=== PATIENT | female | born 1960 ===

== ENCOUNTER 2017-12-26 06:52 | Observation (INO) | payer MEDICARE, SELFPAY ==
[2017-12-26 06:53] VITALS: BMI 22.8
[2017-12-26] MEDS ORDERED: Famotidine 20mg/50ml 20 MG/50 ML BAG IVPB STA (07:33)
[2017-12-26] MEDS ORDERED: Sodium Chloride 0.9% 1,000 ML IV STA (07:33)
--- NOTE | 2017-12-26 07:41 | ED PDOC ---
Arrival/HPI - General Chief Complaint: Abdominal Pain Time Seen by Provider: 12/26/17 07:30 Historian: Patient - History of Present Illness Narrative History of Present Illness (Text): 12/26/17 07:30 57 year old female, whose PMH includes hypertension, fibromyalgia, lupus, and small bowel obstruction, who presents to the emergency department complaining of abdominal cramping since 2 days. Patient associated this symptom with fatigue , insomnia, poor appetite, and multiple diarrhea greater than 12 episodes since yesterday. Patient on December 16, 2017 states she received an endoscopy by Dr. Nicole and was diagnosed with esophagitis and H. pylori and was given antibiotics on December 23, which she reports has caused these symptoms. Patient also notes having difficulty breathing with severe dizziness and lightheadedness x 2 days. pt also states nausea, no vomiting; Patient denies chest pain, palpitations, vomiting, LOC or other complaints. pt denied fall/trauma/travel/sick contact; pt arrived to ED for further eval Additionally, patient states she did not want to take cholesterol medications PMD: Dr. Koo GI: Dr. Nicole Time/Duration: < week Symptom Onset: Gradual Symptom Course: Unchanged Activities at Onset: Rest Context: Home Past Medical History - Provider Review Nursing Documentation Reviewed: Yes - Travel History Have you recently traveled outside [place] w/in the past 3 mons?: No - Past History Past History: No Previous - Infectious Disease Hx of Infectious Diseases: None - Tetanus Immunization Tetanus Immunization: Unknown - Reproductive Menopause: Yes Currently : No - Cardiac Hx Hypertension: Yes - Pulmonary Hx Asthma: Yes - Endocrine/Metabolic Hx Systemic Lupus Erythematosus: Yes - Musculoskeletal/Rheumatological Other/Comment: fibromyalsia - Gastrointestinal Other/Comment: H-pylori - Psychiatric Hx Anxiety: Yes Hx Depression: No Hx Emotional Abuse: No Hx Physical Abuse: No Hx Substance Use: No - Surgical History Hx Appendectomy: Yes Hx Hysterectomy: Yes Hx Tubal Ligation: Yes Other/Comment: uterine fibroids, ovarian cysts - Anesthesia Hx Anesthesia: Yes Hx Anesthesia Reactions: No Hx Malignant Hyperthermia: No - Suicidal Assessment Feels Threatened In Home Enviroment: No Family/Social History - Physician Review Nursing Documentation Reviewed: Yes Family/Social History: Unknown Family HX Smoking Status: Former Smoker Hx Alcohol Use: Yes Frequency of alcohol use: Socially Hx Substance Use: No Hx Substance Use Treatment: No Allergies/Home Meds Allergies/Adverse Reactions: Allergies morphine Allergy (Verified 12/26/17 07:21) ANAPHYLAXIS Penicillins Allergy (Verified 12/26/17 07:21) ANAPHYLAXIS Home Medications: Home Meds Medication Instructions Recorded Confirmed Albuterol Sulfate [Proair Hfa] 1 puff INH QID PRN 12/26/14 12/26/17 Zolpidem Tartrate [Ambien] 10 mg PO HS 12/26/14 12/26/17 Clarithromycin [Biaxin Filmtab] 500 mg PO BID 12/26/17 12/26/17 Esomeprazole Magnesium [Nexium] 40 mg PO BID 12/26/17 12/26/17 Metoprolol Succinate [Toprol XL] 50 mg PO DAILY 12/26/17 12/26/17 Metronidazole [Metronidazole] 500 mg PO TID 12/26/17 12/26/17 Review of Systems - Review of Systems Constitutional: Fatigue. absent: Night Sweats Eyes: absent: Vision Changes ENT: absent: Sore Throat Respiratory: SOB. absent: Cough Cardiovascular: absent: Chest Pain, Palpitations Gastrointestinal: Abdominal Pain, Stool Changes, Diarrhea, Appetite Changes. absent: Nausea, Vomiting Genitourinary Female: absent: Dysuria, Hematuria Musculoskeletal: absent: Back Pain Skin: absent: Rash Neurological: Dizziness (lightheadedness). absent: Headache Endocrine: absent: Diaphoresis Hemo/Lymphatic: Normal Psychiatric: absent: Anxiety, Depression Physical Exam Vital Signs Reviewed: Yes Vital Signs Temp Pulse Resp BP Pulse Ox 12/26/17 12:00 98.9 F 79 18 138/79 98 12/26/17 10:00 90 18 152/88 H 97 12/26/17 08:53 95 H 18 124/84 98 12/26/17 07:17 98.1 F 93 H 18 147/89 99 Temperature: Afebrile Blood Pressure: Normal Pulse: Regular Respiratory Rate: Normal Appearance: Positive for: Well-Appearing, Non-Toxic, Uncomfortable, Other (alert /awake, uncomfortable, resting in bed, NAD, cooperative, GCS = 15, oriented x 3) Pain Distress: None Mental Status: Positive for: Alert and Oriented X 3 - Systems Exam Head: Present: Atraumatic, Normocephalic Pupils: Present: PERRL, Other (no nystagmus, no photophobia, sclera anicteric, visual field intact b/l) Extroacular Muscles: Present: EOMI Conjunctiva: Present: Normal Ears: Present: Normal Mouth: Present: Dry, Normal Teeth, Other (no drooling/stridor, uvula/tongue are midline, no exudate/lesions; mild dry oral mucosa) Pharnyx: Present: Normal Nose (External): Present: Atraumatic Nose (Internal): Present: Normal Inspection Neck: Present: Normal Range of Motion, Trachea Midline, Other (no step off, no midline tenderness, no masses/rebound/guarding/rigidity). No: Meningeal Signs, MIDLINE TENDERNESS Respiratory/Chest: Present: Clear to Auscultation, Good Air Exchange, Other ( CTA b/l, no w/r/r, no tachypenia). No: Respiratory Distress, Accessory Muscle Use, Wheezes, Decreased Breath Sounds, Rales, Retracting, Rhonchi Cardiovascular: Present: Regular Rate and Rhythm, Normal S1, S2. No: Murmurs Abdomen: Present: Normal Bowel Sounds, Other (well nourished female, mild mid abd tenderness, no krishnan's sign, no mcburney's point tenderness, no masses/ rebound/guarding/rigidity). No: Tenderness, Distention, Peritoneal Signs Back: Present: Normal Inspection, Other (no midline tenderness). No: CVA Tenderness, Midline Tenderness Upper Extremity: Present: Normal Inspection, Normal ROM, NORMAL PULSES, Neurovascularly Intact, Capillary Refill < 2s. No: Cyanosis, Edema Lower Extremity: Present: Normal Inspection, NORMAL PULSES, Normal ROM, Neurovascularly Intact, Capillary Refill < 2 s. No: Edema Neurological: Present: GCS=15, CN II-XII Intact, Speech Normal Skin: Present: Warm, Dry, Normal Color, Other (cap refill ~ 1 sec, no ulcerations, no petechiae, no rashes). No: Rashes Psychiatric: Present: Alert, Oriented x 3, Normal Insight, Normal Concentration Medical Decision Making ED Course and Treatment: 12/26/17 Impression: 57 year old female complaining of abdominal cramping associated with poor appetite, diarrhea, and dizziness. I have considered all Differential Diagnosis regarding pt's chief medical complaints/clinical findings included but are not limited to: Plan: -- EKG -- Labs -- Pepcid and Sodium Chloride -- Urinalysis -- Reassess and disposition Progress Notes: 9:55 pt continues to have mid abd cramps pt states + nausea pt denied gross pain pt denied any vomiting will recommend patient for admission/hydration, likely observation 12/26/17 10:[address] Madden, who agrees with admisison for observation and consultation for Dr. Sherman. He wants to continue blood culture, stool culture, and continue fluids. Doctor agrees wtih obtaining CT images. 12/26/17 11:54 pt is made aware of her medical results agrees with admission/observation Re-evaluation Time: 10:00 Reassessment Condition: Improving,but remains with symptoms - Lab Interpretations Lab Results: 12/26/17 07:30 12/26/17 07:30 Lab Results 12/26/17 08:15: Urine Color Yellow, Urine Appearance Clear, Urine pH 6.0, Ur Specific [place] >= 1.030, Urine Protein Negative, Urine Glucose (UA) Negative, Urine Ketones Negative, Urine Blood Negative, Urine Nitrate Negative, Urine Bilirubin Negative, Urine Urobilinogen 0.2, Ur Leukocyte Esterase Negative 12/26/17 07:30: pO2 50, VBG pH 7.40, VBG pCO2 34.0 L, VBG HCO3 21.1, VBG Total CO2 22.1, VBG O2 Sat (Calc) 89.3 H, VBG Base Excess -3.0 L, VBG Potassium 4.1, Sodium 140.0, Chloride 107.0, Glucose 134 H, Lactate 4.1 H*, FiO2 21.0, Venous Blood Potassium 4.1 12/26/17 07:30: Sodium 144, Chloride 108 H, Potassium 4.1, Carbon Dioxide 18 L, Anion Gap 23 H, BUN 11, Creatinine 0.7, Est GFR ( Amer) > 60, Est GFR ( Non-Af Amer) > 60, Random Glucose 133 H, Calcium 10.1, Total Bilirubin 0.7, AST 21, ALT 30, Alkaline Phosphatase 64, Troponin I < 0.01, Total Protein 8.2, Albumin 4.9 H, Globulin 3.3, Albumin/Globulin Ratio 1.5, Lipase 74 12/26/17 07:30: WBC 6.8, RBC 4.28, Hgb 12.9, Hct 37.8, MCV 88.3, MCH 30.1, MCHC 34.1, RDW 13.4, Plt Count 388, MPV 8.1, Gran % 69.8 H, Lymph % (Auto) 23.8, Glasscock % (Auto) 5.9, Eos % (Auto) 0.1 L, Baso % (Auto) 0.4, Gran # 4.72, Lymph # ( Auto) 1.6, Glasscock # (Auto) 0.4, Eos # (Auto) 0.0, Baso # (Auto) 0.03 I have reviewed the lab results: Yes Interpretation: Abnormal lab values (elevated lactate) - RAD Interpretation Narrative RAD Interpretations (Text): 12/26/17 12:37 PROCEDURE: CT Abdomen and Pelvis with contrast HISTORY: Epigastric pain COMPARISON: None. TECHNIQUE: CT scan of the abdomen and pelvis was performed without administration of intravenous contrast. Oral contrast was not administered. Coronal and sagittal reformatted images were obtained. Contrast dose: 100 mL Omnipaque 350 Radiation dose: Total exam DLP = 232.61 mGy-cm. This CT exam was performed using one or more of the following dose reduction techniques: Automated exposure control, adjustment of the mA and/or kV according to patient size, and/or use of iterative reconstruction technique. FINDINGS: LOWER THORAX: There is subsegmental atelectasis in the right middle lobe, lingula and right lower lobe. LIVER: There is mild hepatomegaly and diffuse fatty infiltration in the liver. No gross lesion or ductal dilatation. GALLBLADDER AND BILE DUCTS: There are tiny gallstones. PANCREAS: Normal in size with homogeneous enhancement. No gross lesion or ductal dilatation. SPLEEN: Normal in size and appearance. ADRENALS: No discrete nodule. KIDNEYS AND URETERS: Normal in size with homogeneous enhancement. No hydronephrosis. No solid mass. VASCULATURE: No aortic aneurysm. BOWEL: The small bowel loops are normal in caliber. The colon is decompressed. No bowel dilatation or obstruction. There are multiple surgical clips in the abdomen. APPENDIX: Surgically absent. PERITONEUM: No free fluid. No free air. LYMPH NODES: No enlarged lymph nodes. BLADDER: Decompressed. REPRODUCTIVE: The uterus is surgically absent. BONES: No acute fracture. There is degenerative disc disease at L5-S1. OTHER FINDINGS: None. IMPRESSION: No acute abdominal or pelvic abnormality. Mild hepatomegaly and fatty liver. Cholelithiasis. Radiology Orders: 12/26/17 09:53 ABD & PELVIS IV CONTRAST ONLY [CT] [employer] Portal Developer: Radiologist - EKG Interpretation EKG Interpretation (Text): 12/26/17 12:38 NSR at 80 bpm, normal axis, no ectopy, no st-t changes, BORDERLINE EKG; unchanged compare with old ekg 07/2015 Interpreted by ED Physician: Yes Type: 12 lead EKG Comparison: Similar to previous EKG - Medication Orders Current Medication Orders: Dextrose/Sodium Chloride (Dextrose 5%/0.45% Ns 1000 Ml) 1,000 mls @ 125 mls/hr IV .Q8H EARLINE Last Admin: 12/26/17 10:15 Dose: 125 mls/hr eMAR Start Stop Document 12/26/17 10:15 EWO (Rec: 12/26/17 10:15 [id number] Intravenous Solution Start Date 12/26/17 Start Time 10:15 Metoclopramide HCl (Reglan) 10 mg IVP ACHS EARLINE Last Admin: 12/26/17 12:21 Dose: 10 mg IVP Administration Document 12/26/17 12:21 EWO (Rec: 12/26/17 12:21 [id number] Charges for Administration # of IVP Administrations 1 Pantoprazole Sodium (Protonix Inj) 40 mg IVP DAILY EARLINE Last Admin: 12/26/17 12:21 Dose: 40 mg IVP Administration Document 12/26/17 12:21 EWO (Rec: 12/26/17 12:21 [id number] Charges for Administration # of IVP Administrations 1 Discontinued Medications Famotidine (Pepcid 20mg/50ml Premix) 20 mg in 50 mls @ 100 mls/hr IVPB STAT STA Stop: 12/26/17 08:02 Last Admin: 12/26/17 08:01 Dose: 100 mls/hr eMAR Start Stop Document 12/26/17 08:01 EWO (Rec: 12/26/17 08:01 [id number] Intravenous Solution Start Date 12/26/17 Start Time 08:01 End Date 12/26/17 End time 08:30 Total Infusion Time 29 Sodium Chloride (Sodium Chloride 0.9%) 1,000 mls @ 999 mls/hr IV .Q1H1M STA Stop: 12/26/17 08:33 Last Admin: 12/26/17 07:52 Dose: 999 mls/hr eMAR Start Stop Document 12/26/17 07:52 EWO (Rec: 12/26/17 07:54 [id number] Intravenous Solution Start Date 12/26/17 Start Time 07:52 End Date 12/26/17 End time 08:52 Total Infusion Time 60 Ondansetron HCl (Zofran Inj) 4 mg IVP STAT STA Stop: 12/26/17 09:53 Last Admin: 12/26/17 10:13 Dose: 4 mg IVP Administration Document 12/26/17 10:13 EWO (Rec: 12/26/17 10:13 [facility]-[id number]) Charges for Administration # of IVP Administrations 1 - Scribe Statement The provider has reviewed the documentation as recorded by the Scribe Dunia Trinidad Provider Scribe Attestation: All medical record entries made by the Scribe were at my direction and personally dictated by me. I have reviewed the chart and agree that the record accurately reflects my personal performance of the history, physical exam, medical decision making, and the department course for this patient. I have also personally directed, reviewed, and agree with the discharge instructions and disposition. Disposition/Present on Arrival - Present on Arrival Any Indicators Present on Arrival: No History of DVT/PE: No History of Uncontrolled Diabetes: No Urinary Catheter: No History of Decub. Ulcer: No History Surgical Site Infection Following: None - Disposition Have Diagnosis and Disposition been Completed?: Yes Diagnosis: Dehydration, Nausea, Diarrhea, Abdominal bloating, Gallstone Disposition: HOSPITALIZED Disposition Time: 10:10 Patient Plan: Admission, Observation Patient Problems: Current Active Problems Problem Status Onset Abdominal bloating Acute Dehydration Acute Diarrhea Acute Gallstone Acute Nausea Acute Condition: STABLE
[2017-12-26 07:58] LABS: BASO # 0.03 K/mm3 (0.0-2.0); BASO % 0.4 % (0.0-3.0); EOS % 0.1 % (1.5-5.0); GRAN # 4.72 (1.4-6.5); GRAN % 69.8 % (50.0-68.0); HEMOGLOBIN 12.9 g/dL (12.0-16.0); LYMPH # 1.6 (1.2-3.4); LYMPH % 23.8 % (22.0-35.0); MEAN CELL VOLUME 88.3 fl (80.0-105.0); MEAN CORPUSCULAR HEMOGLOBIN 30.1 pg (25.0-35.0); MEAN CORPUSCULAR HGB CONC 34.1 g/dl (31.0-37.0); MEAN PLATELET VOLUME 8.1 fl (7.0-11.0); MONO # 0.4 (0.1-0.6); MONO % 5.9 % (1.0-6.0); RBC 4.28 10^6/uL (3.5-6.1); RED CELL DISTRIBUTION WIDTH 13.4 % (11.5-14.5); WHITE BLOOD COUNT 6.8 10^3/ul (4.5-11.0)
[2017-12-26 07:59] LABS: VENOUS BLOOD GAS PO2 50 mm/Hg (30-55)
[2017-12-26 08:09] LABS: ALB/GLOB RATIO 1.5 (1.1-1.8); ALBUMIN 4.9 g/dL (3.0-4.8); ALT/SGPT 30 U/L (7-56); AST/SGOT 21 U/L (14-36); BLOOD UREA NITROGEN 11 mg/dL (7-21); CALCIUM 10.1 mg/dL (8.4-10.5); GFR AFRICAN-AMERICAN > 60; GFR NON-AFRICAN AMERICAN > 60; LIPASE 74 U/L (23-300)
[2017-12-26 08:20] LABS: TROPONIN I < 0.01 ng/mL
[2017-12-26 08:23] LABS: URINE APPEARANCE CLEAR (CLEAR); URINE BILIRUBIN NEGATIVE (NEGATIVE); URINE BLOOD NEGATIVE (NEGATIVE); URINE COLOR YELLOW (YELLOW); URINE GLUCOSE (UA) NEGATIVE (NEGATIVE); URINE LEUKOCYTE ESTERASE NEGATIVE Leu/uL (NEGATIVE); URINE PROTEIN NEGATIVE mg/dL (<30 mg/dL); URINE UROBILINOGEN 0.2 E.U./dL (<1 E.U./dL)
[2017-12-26] MEDS: Dextrose 5%/0.45% NS 1,000 ML IV SCH (10:15)
[2017-12-26] MEDS ORDERED: Iohexol 350 MG/100 ML VIAL ONE (10:32)
--- NOTE | 2017-12-26 12:14 | CT ---
PROCEDURE: CT Abdomen and Pelvis with contrast HISTORY: Epigastric pain COMPARISON: None. TECHNIQUE: CT scan of the abdomen and pelvis was performed without administration of intravenous contrast. Oral contrast was not administered. Coronal and sagittal reformatted images were obtained. Contrast dose: 100 mL Omnipaque 350 Radiation dose: Total exam DLP = 232.61 mGy-cm. This CT exam was performed using one or more of the following dose reduction techniques: Automated exposure control, adjustment of the mA and/or kV according to patient size, and/or use of iterative reconstruction technique. FINDINGS: LOWER THORAX: There is subsegmental atelectasis in the right middle lobe, lingula and right lower lobe. LIVER: There is mild hepatomegaly and diffuse fatty infiltration in the liver. No gross lesion or ductal dilatation. GALLBLADDER AND BILE DUCTS: There are tiny gallstones. PANCREAS: Normal in size with homogeneous enhancement. No gross lesion or ductal dilatation. SPLEEN: Normal in size and appearance. ADRENALS: No discrete nodule. KIDNEYS AND URETERS: Normal in size with homogeneous enhancement. No hydronephrosis. No solid mass. VASCULATURE: No aortic aneurysm. BOWEL: The small bowel loops are normal in caliber. The colon is decompressed. No bowel dilatation or obstruction. There are multiple surgical clips in the abdomen. APPENDIX: Surgically absent. PERITONEUM: No free fluid. No free air. LYMPH NODES: No enlarged lymph nodes. BLADDER: Decompressed. REPRODUCTIVE: The uterus is surgically absent. BONES: No acute fracture. There is degenerative disc disease at L5-S1. OTHER FINDINGS: None. IMPRESSION: No acute abdominal or pelvic abnormality. Mild hepatomegaly and fatty liver. Cholelithiasis.
--- NOTE | 2017-12-26 13:49 | CARD ---
APPROVED REPORT EKG Measurement Heart [id number] <Conclusion> Normal sinus rhythm Normal ECG
[2017-12-26] MEDS ORDERED: Pneumococcal 23-Valent Vaccine IM ONE (19:40)
[2017-12-27] MEDS: Dextrose 5%/0.45% NS 1,000 ML IV SCH (02:15)
--- NOTE | 2017-12-27 05:48 | HP ---
DATE OF EXAM: 12/26/2017 HISTORY OF PRESENT ILLNESS: This 57-year-old female was examined at her bedside and this case was reviewed in detail with herself, emergency room physician, Dr. Karlos Nguyen and her nurse, Korina Kaba. This patient is 57 years old. She presented to [facility] complaining of persistent diarrhea causing weakness and near syncope. She states she had had over 12 episodes of watery diarrhea in the past 24 hours. She stated she was unable to tolerate any oral feeding or fluid and in the emergency room, was noted to be orthostatic. Patient's past medical history is significant for fibromyalgia, lupus and a recent endoscopy by Dr. Eleuterio Sung from GI, during which she was noted to have esophagitis and H. Pylori. She was recommended to complete treatment for H. Pylori, which she discontinued because she stated it caused her to have adverse gastrointestinal side effects. This will need to be reviewed by the patient with her heating and ventilating tender when improved. REVIEW OF SYSTEMS: CONSTITUTIONAL REVIEW: No fever, no chills. HEENT: Head review, no headache, no seizure. Eye review, no change in visual acuity. Ear review, no hearing loss. Throat review, no swallowing difficulty. NECK REVIEW: No stiffness. CARDIAC REVIEW: She has a history of chronic hypertension. PULMONARY: No hemoptysis. GASTROINTESTINAL: As per HPI. GENITOURINARY: No dysuria. SKIN: No rash. VASCULAR: No claudication. PSYCHOLOGICAL: Chronic anxiety and insomnia. NEUROLOGICAL; No stroke. ENDO; No history of diabetes. SOCIAL HISTORY: She is a former smoker, social drinker. She denies any IV drug misuse and states she takes both Xanax and Ambien for anxiety and insomnia. FAMILY HISTORY: Noncontributory. OUTPATIENT MEDICATIONS: Included ProAir inhaler, Ambien, Biaxin, Nexium, Toprol and Flagyl. PHYSICAL EXAMINATION: VITAL SIGNS: Orthostatic blood pressures in the ER included supine blood pressure of 152/88, sitting blood pressure of 138/79 and an upright blood pressure of 124/84 with pulses of 90 supine, 79 sitting and 95 upright. HEENT: Head: Normocephalic, atraumatic. Eyes: No icterus. Ears: Clear. Throat: Noninjected. NECK: Supple. HEART: With S1 and S2. LUNGS: Clear. ABDOMEN: Diffuse tenderness. No rebound, no guarding, no organomegaly. EXTREMITIES: No clubbing, no cyanosis, no edema. SKIN: Without rash. NEUROLOGICAL: Intact. PSYCHOLOGICAL: Anxiety. VASCULAR: Legs warm to touch. Abdominal and pelvic CT was reviewed. It showed evidence of hepatomegaly and fatty liver with small gallstones and no evidence of ductal dilatation of the hepatobiliary tract, otherwise unremarkable. EKG reportedly showed a normal sinus rhythm with nonspecific ST-T wave changes. LABORATORY DATA: White count 6,800, hemoglobin 12.9, hematocrit 37.8, platelets 388,000. Sodium 144, K 4.1, chloride 108, bicarb 18, BUN 11, creatinine 0.7, random blood sugar 133. Bilirubin 0.7, AST 21, ALT 30 and alk phos 64. Troponin less than 0.01. Lactic acidosis level was elevated at 4.1, normal being 2.1 or less. Urinalysis was unremarkable. IMPRESSION: A 57-year-old female with copious diarrhea, near syncope, orthostatic hypotension, lactic acidosis, crampy abdominal pain with recent history of Helicobacter pylori on endoscopy with intolerance to prescribed treatment for the above. PLAN: At present is to obtain stool studies for O&P, C. diff toxin and C&S. The patient has been started on D5 0.45 saline at 125 mL/hour. We will have orthostatic blood pressures monitored while on the cardiac unit. She will continue on Pepcid 20 mg p.o. b.i.d. She has been prescribed Reglan 10 mg IV a.c. meals and at bedtime. She will continue with Zofran 4 mg IV every 6 hours p.r.n. nausea and vomiting and will have a repeat basic metabolic panel in the a.m. Once she is cleared by Dr. Eleuterio Sung from GI and is clinically stable, she will be discharged to home for outpatient followup with him and his office. Greater than 75 minutes was spent in the care management, review of labs, orders, x-rays and discussion of this patient with herself; emergency room physician, Dr. Nguyen; nurse, Korina Kaba and Dr. Eleuterio Sung from . All questions were answered. Lalitha Mendez MD [facility] # [id number] BRETT
[2017-12-27 07:46] LABS: BLOOD UREA NITROGEN 10 mg/dL (7-21); CALCIUM 9.1 mg/dL (8.4-10.5); GFR AFRICAN-AMERICAN > 60; GFR NON-AFRICAN AMERICAN > 60
[2017-12-27 08:46] VITALS: BP 133/79; PULSE 69; RESP 18; TEMP 97.9; O2SAT 99
--- NOTE | 2017-12-29 08:59 | CON ---
DATE: 12/26/2017 REASON FOR CONSULT: I have been asked to see this 57-year-old female with history of hypertension, fibromyalgia, lupus who comes to the hospital with vague abdominal pain, chest pain, difficulty breathing. I performed an endoscopy on this patient several weeks ago for epigastric pain and heartburn. 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 pylori gastritis. She was just recently started on Zithromax 500 b.i.d., Flagyl 500 mg three times a day as well as lansoprazole 30 mg once a day. I saw the patient in the office yesterday with different symptoms of postprandial fullness, vague nausea and frequent bowel movements. The patient woke up this morning with generalized weakness, difficulty breathing, dizziness and lightheadedness. She denies any further diarrhea at this time. She denies any vomiting. PAST MEDICAL HISTORY: As above. Again, she has a history of hypertension, fibromyalgia, lupus, small-bowel obstruction, H. pylori gastritis. PAST SURGICAL HISTORY: Notable for abdominal surgery for small-bowel obstruction, appendectomy, hysterectomy, tubal ligation, removal of uterine fibroids and ovarian cysts. SOCIAL HISTORY: She denies alcohol use. She is a former cigarette smoker, having quit years ago. REVIEW OF SYSTEMS: A 14-point review of systems is positive for nausea, postprandial fullness, diarrhea, abdominal pain, chest pain, dyspnea. MEDICATIONS AT HOME: Include Flagyl 500 mg t.i.d., Biaxin 500 mg b.i.d., Nexium 40 mg b.i.d., Ambien 10 mg at night, metoprolol 50 mg daily, ProAir 1 puff q.i.d. PHYSICAL EXAMINATION: GENERAL: Well-developed female lying in bed in no acute distress. VITAL SIGNS: Reveal temperature of 98.1, blood pressure 152/88, heart rate 90. HEENT: Reveal sclerae to be white. Conjunctivae pink. Oral mucosa is dry. NECK: Supple. CHEST/LUNGS: Clear. HEART: Reveals regular rate and rhythm. ABDOMEN: Soft, nontender. EXTREMITIES: Show no edema. LABORATORY DATA: Reveal white blood cell count 6.8, hemoglobin 12.9. Laboratory data reveal chloride 108, bicarb of 18, BUN 11, creatinine 0.7. AST, ALT, alkaline phosphatase all normal. IMPRESSION: A 57-year-old female with multiple somatic complaints including vague abdominal pain, postprandial fullness, nausea, diarrhea, difficulty breathing, chest discomfort with recently diagnosed Helicobacter pylori gastritis. She appears to be somewhat dehydrated. One must rule out pseudomembranous colitis given recent antibiotic use. RECOMMENDATIONS: 1. Check stool for C. diff. 2. Protonix 40 mg once a day. 3. Patient has had a CT scan of the abdomen and pelvis. 4. The patient will need workup for chest discomfort and shortness of breath. 5. We would also consider psychiatric evaluation for some of her somatoform complaints. Eleuterio Sung MD
--- NOTE | 2017-12-29 10:07 | DS ---
DATE OF EVALUATION: 12/27/2017. FINAL DIAGNOSES: Orthostatic hypotension, resolved; dehydration, resolved; diarrhea, improved; history of Helicobacter pylori esophagitis, chronic obstructive pulmonary disease, anxiety, neurosis, peptic ulcer disease, hypertension and asthmatic bronchitis. DISPOSITION: Home. Patient to follow up with her primary care physician, Dr. Koo within 48 hours. Patient advised to follow up with Dr. Eleuterio Sung within 48 hours, Gastroenterology. DISCHARGE MEDICATIONS: Flagyl 500 mg p.o. t.i.d., Biaxin 500 mg p.o. b.i.d., Nexium 40 mg p.o. b.i.d., Toprol XL 50 mg p.o. daily, ProAir one puff four times daily p.r.n. shortness of breath. SUMMARY: This is a 57-year-old female who presented to [facility] Emergency Room and was admitted for 12 bouts of diarrhea within the past 24 hours of admission as well as orthostatic hypotension in the setting of near syncope. She was admitted to the cardiac unit, given aggressive IV fluids, was seen in consultation by Dr. Eleuterio Sung who will follow the patient as an outpatient for newly diagnosed H. Pylori gastritis. At the time of discharge, patient's repeat blood pressures were 128/68 lying, 124/82 sitting and 131/84 standing; temperature 97.9, respirations 18 and pulse 69 and regular with a pulse ox of 99% on room air. Discharge labs show white count 6800, hemoglobin 12.9, hematocrit 37.8, platelets 388,000. Sodium 143, K 4.6, chloride 106, bicarb 25, BUN 10, creatinine 0.7, random blood sugar 126. All liver function testing were normal including bilirubin 0.7, AST 21, ALT 30 and alk phos 64. Urinalysis was unremarkable. Blood culture showed no growth at 24 hours. Stool for C. diff antigen and toxin were negative. EKG showed a normal sinus rhythm with nonspecific ST-T wave changes and abdominal pelvic CT was reviewed and showed mild hepatomegaly, diffuse fatty infiltration of the liver and no gross lesions or ductal dilatations. The patient was cleared for discharge to home with instructions as outlined above. All of the above was reviewed in detail with the patient at her bedside in the presence of her nurse, Monserrat Willett, registered nurse. Greater than 35 minutes was spent in the care management and review of discharge orders for this patient today. All questions were answered. Lalitha Mendez MD MTDScott
== END 2017-12-27 18:47 | disposition home or self-care (01) ==
LOC: ED 06:52 → ERH 10:06 → UNDOADMOB 10:36 → ERH 10:36 → 3RSO 13:48 → ERH 13:48 → UNDODISOB 12-27 18:47
PROVIDERS: ADMIT Internal Medicine; ATTEND Internal Medicine
DX: K29.70 Gastritis, unspecified, without bleeding (principal); B96.81 Helicobacter pylori [H. pylori] as the cause of diseases classified elsewhere; E86.0 Dehydration; E87.2 Acidosis; G47.00 Insomnia, unspecified; I10 Essential (primary) hypertension; I95.1 Orthostatic hypotension; J45.909 Unspecified asthma, uncomplicated; K76.0 Fatty (change of) liver, not elsewhere classified; K80.20 Calculus of gallbladder without cholecystitis without obstruction; M32.9 Systemic lupus erythematosus, unspecified; M79.7 Fibromyalgia; Z79.899 Other long term (current) drug therapy; Z87.11 Personal history of peptic ulcer disease; Z87.891 Personal history of nicotine dependence; Z90.49 Acquired absence of other specified parts of digestive tract; Z90.710 Acquired absence of both cervix and uterus; Z98.51 Tubal ligation status; J44.9 Chronic obstructive pulmonary disease, unspecified; D13.0 Benign neoplasm of esophagus
CPT/HCPCS: 36415; 74177; 80048; 80053; 81003; 82803; 83690; 84484; 85025; 87040; 87045; 87177; 87209; 87324; 93005; 96365; 96375; 96376; 99285; C9113; G0378; J2405; J2765; J7040; J7042; Q9967

== ENCOUNTER 2018-04-02 21:27 | Emergency (ER) | payer MEDICARE, OTHER, SELFPAY ==
--- NOTE | 2018-04-02 21:56 | ED PDOC ---
Arrival/HPI - General Chief Complaint: Chest Pain Time Seen by Provider: 04/02/18 21:31 Historian: Patient - History of Present Illness Narrative History of Present Illness (Text): 04/02/18 21:47 A 57 year old female, whose past medical history includes fibromyalgia and anxiety, presents to the emergency room with a complaint of left- sided chest pain. The patient states that this morning she had an episode of left- sided chest pain. She described it as sharp pressure that lasted a couple seconds. She notes that she stayed home all day because of her anxiety. She notes that when she went to get off of the couch and leaned over, she began to experience the pain again. She reports that she had a normal stress test 3 years ago. She also notes that she had a recent endscopy and colonoscopy and was being treated for H. pylori. The patient is asymptomatic in the emergency room. The chest pain is non-pleuritic. The patient denies fevers, chills, headache, dizziness, sore throat, cough, shortness of breath, dyspnea on exertion, abdominal pain, nausea, vomiting, diarrhea, neck/back pain, urinary/bowel changes or any other complaint. PMD: [employer]: Dr. Uriarte Time/Duration: Other (This morning) Symptom Onset: Sudden Symptom Course: Unchanged Activities at Onset: Rest, Light Context: Home Past Medical History - Provider Review Nursing Documentation Reviewed: Yes - Past History Past History: No Previous - Infectious Disease Hx of Infectious Diseases: None - Tetanus Immunization Tetanus Immunization: Unknown - Reproductive Menopause: Yes - Cardiac Hx Hypertension: Yes - Pulmonary Hx Asthma: Yes - Endocrine/Metabolic Hx Systemic Lupus Erythematosus: Yes - Musculoskeletal/Rheumatological Hx Falls: No - Gastrointestinal Other/Comment: H-pylori - Psychiatric Hx Anxiety: Yes Hx Substance Use: No - Surgical History Hx Appendectomy: Yes Hx Hysterectomy: Yes Other/Comment: uterine fibroids, ovarian cysts - Anesthesia Hx Anesthesia: Yes Hx Anesthesia Reactions: No Hx Malignant Hyperthermia: No - Suicidal Assessment Feels Threatened In Home Enviroment: No Family/Social History - Physician Review Nursing Documentation Reviewed: Yes Family/Social History: No Known Family HX Smoking Status: Never Smoked Hx Alcohol Use: Yes Hx Substance Use: No Hx Substance Use Treatment: No Allergies/Home Meds Allergies/Adverse Reactions: Allergies morphine Allergy (Verified 12/26/17 07:21) ANAPHYLAXIS Penicillins Allergy (Verified 12/26/17 07:21) ANAPHYLAXIS Home Medications: Home Meds Medication Instructions Recorded Confirmed Albuterol Sulfate [Proair Hfa] 1 puff INH QID PRN 12/26/14 04/02/18 Zolpidem Tartrate [Ambien] 10 mg PO HS 12/26/14 04/02/18 Esomeprazole Magnesium [Nexium] 40 mg PO BID 12/26/17 04/02/18 Metoprolol Succinate XL [Toprol XL] 50 mg PO DAILY 12/26/17 04/02/18 Metronidazole 500 mg PO TID 12/26/17 04/02/18 Review of Systems - Physician Review All systems were reviewed & negative as marked: Yes - Review of Systems Constitutional: absent: Fevers, Night Sweats Respiratory: absent: SOB, Cough Cardiovascular: Chest Pain. absent: [place] Gastrointestinal: absent: Abdominal Pain, Stool Changes, Diarrhea, Nausea, Vomiting Genitourinary Female: absent: Urine Output Changes Musculoskeletal: absent: Back Pain, Neck Pain Neurological: absent: Headache, Dizziness Physical Exam Vital Signs Reviewed: Yes Vital Signs Temp Pulse Resp BP Pulse Ox 04/02/18 22:58 91 H 14 140/94 H 97 04/02/18 21:34 98 F 97 H 19 152/78 H 100 Temperature: Afebrile Blood Pressure: Hypertensive Pulse: Tachycardic Respiratory Rate: Normal Appearance: Positive for: Well-Appearing, Non-Toxic, Comfortable Pain Distress: None Mental Status: Positive for: Alert and Oriented X 3 - Systems Exam Head: Present: Atraumatic, Normocephalic Pupils: Present: PERRL Extroacular Muscles: Present: EOMI Conjunctiva: Present: Normal Mouth: Present: Moist Mucous Membranes Neck: Present: Normal Range of Motion Respiratory/Chest: Present: Clear to Auscultation, Good Air Exchange, Tender to Palpation (Tenderness under left breast when palpated.). No: Respiratory Distress, Accessory Muscle Use Cardiovascular: Present: Regular Rate and Rhythm, Normal S1, S2. No: Murmurs Abdomen: No: Tenderness, Distention, Peritoneal Signs Back: Present: Normal Inspection Upper Extremity: Present: Normal Inspection. No: Cyanosis, Edema Lower Extremity: Present: Normal Inspection. No: Edema Neurological: Present: GCS=15, CN II-XII Intact, Speech Normal Skin: Present: Warm, Dry, Normal Color. No: Rashes Psychiatric: Present: Alert, Oriented x 3, Normal Insight, Normal Concentration Medical Decision Making ED Course and Treatment: 04/02/18 21:59 Impression: A 57 year old female presents to the emergency room with complaint of left sided chest pain. Plan: -- Chest X-ray -- EKG -- Aspirin -- Labs -- Reassess and disposition Progress Notes: 04/02/18 22:00 EKG: Ordered, reviewed, and independently interpreted the EKG. Rate : 97 BPM Rhythm : NSR Interpretation : No acute changes. 04/02/18 22:01: Stress test on 12/26/14 was normal with normal LVEF. 04/02/18 22:41 Heart score:2. Only risk factor is htn. No tobacco use, dm, or high cholesterol. Stress test negative 3 years ago. Patient reports hx of chronic pain due to athritis and fibromyalgia. She reports PMD follow-up next week and reports she will call Dr. Uriarte tomorrow for appt. - Lab Interpretations Lab Results: 04/02/18 21:45 04/02/18 21:45 Lab Results 04/02/18 21:45: PT 10.0, INR 0.88 L, APTT 30.8 04/02/18 21:45: Sodium 143, Potassium 4.1, Chloride 106, Carbon Dioxide 21, Anion Gap 19, BUN 16, Creatinine 0.6 L, Est GFR ( Amer) > 60, Est GFR ( Non-Af Amer) > 60, Random Glucose 154 H, Calcium 9.4, Total Bilirubin 0.4, AST 28, ALT 36, Alkaline Phosphatase 100, Total Creatine Kinase 71, Troponin I < 0.01, Total Protein 8.1, Albumin 4.7, Globulin 3.4, Albumin/Globulin Ratio 1.3 04/02/18 21:45: WBC 6.1, RBC 3.91, Hgb 12.0, Hct 34.9 L, MCV 89.3, MCH 30.7, MCHC 34.4, RDW 13.0, Plt Count 391, MPV 8.3, Gran % 50.3, Lymph % (Auto) 40.4 H , Lassen % (Auto) 6.5 H, Eos % (Auto) 2.0, Baso % (Auto) 0.8, Gran # 3.08, Lymph # (Auto) 2.5, Lassen # (Auto) 0.4, Eos # (Auto) 0.1, Baso # (Auto) 0.05 I have reviewed the lab results: Yes - RAD Interpretation Radiology Orders: 04/02/18 21:39 CHEST PORTABLE [RAD] Stat - EKG Interpretation Interpreted by ED Physician: Yes Type: 12 lead EKG - Medication Orders Current Medication Orders: Discontinued Medications Aspirin (Aspirin Chewable) 324 mg PO STAT STA Stop: 04/02/18 21:41 Last Admin: 04/02/18 22:15 Dose: 324 mg - Scribe Statement The provider has reviewed the documentation as recorded by the Stweibe Nicky Quiñones Provider Scribe Attestation: All medical record entries made by the Scribe were at my direction and personally dictated by me. I have reviewed the chart and agree that the record accurately reflects my personal performance of the history, physical exam, medical decision making, and the department course for this patient. I have also personally directed, reviewed, and agree with the discharge instructions and disposition. Disposition/Present on Arrival - Present on Arrival Any Indicators Present on Arrival: No History of DVT/PE: No History of Uncontrolled Diabetes: No Urinary Catheter: No History of Decub. Ulcer: No History Surgical Site Infection Following: None - Disposition Have Diagnosis and Disposition been Completed?: Yes Diagnosis: Chest pain Disposition: HOME/ ROUTINE Disposition Time: 22:43 Patient Plan: Discharge Condition: GOOD Discharge Instructions (ExitCare): Heart Disease in Women (DC), Chest Pain (ED) Additional Instructions: Follow-up with Dr. Uriarte tomorrow. Return to ED if condition worsens. Follow- up with PMD within 2 days. Forms: [employer] (Cook Islander)
[2018-04-02 21:59] VITALS: TEMP 98; BMI 22.6
[2018-04-02 22:14] LABS: BASO # 0.05 K/mm3 (0.0-2.0); BASO % 0.8 % (0.0-3.0); EOS # 0.1 (0.0-0.7); GRAN # 3.08 (1.4-6.5); GRAN % 50.3 % (50.0-68.0); LYMPH # 2.5 (1.2-3.4); LYMPH % 40.4 % (22.0-35.0); MEAN CELL VOLUME 89.3 fl (80.0-105.0); MEAN CORPUSCULAR HEMOGLOBIN 30.7 pg (25.0-35.0); MEAN CORPUSCULAR HGB CONC 34.4 g/dl (31.0-37.0); MEAN PLATELET VOLUME 8.3 fl (7.0-11.0); MONO # 0.4 (0.1-0.6); MONO % 6.5 % (1.0-6.0); RBC 3.91 10^6/uL (3.5-6.1); WHITE BLOOD COUNT 6.1 10^3/ul (4.5-11.0)
[2018-04-02 22:19] LABS: ALB/GLOB RATIO 1.3 (1.1-1.8); ALBUMIN 4.7 g/dL (3.0-4.8); CALCIUM 9.4 mg/dL (8.4-10.5); GFR AFRICAN-AMERICAN > 60; GFR NON-AFRICAN AMERICAN > 60
[2018-04-02 22:26] LABS: INR 0.88 (0.93-1.08); PARTIAL THROMBOPLASTIN TIME 30.8 Seconds (25.1-36.5)
[2018-04-02 22:30] LABS: TROPONIN I < 0.01 ng/mL
[2018-04-02 22:35] LABS: ALT/SGPT 36 U/L (7-56); AST/SGOT 28 U/L (14-36); BLOOD UREA NITROGEN 16 mg/dL (7-21)
[2018-04-02 23:05] VITALS: BP 140/94; RESP 14; O2SAT 97
[2018-04-02 23:06] VITALS: PULSE 91
--- NOTE | 2018-04-03 08:57 | RAD ---
Date of service: 04/02/2018 HISTORY: chest pain COMPARISON: 02/08/2016 FINDINGS: LUNGS: No active pulmonary disease. PLEURA: No significant pleural effusion identified, no pneumothorax apparent. CARDIOVASCULAR: Normal. OSSEOUS STRUCTURES: No significant abnormalities. VISUALIZED UPPER ABDOMEN: Normal. OTHER FINDINGS: None. IMPRESSION: No active disease.
--- NOTE | 2018-04-03 17:39 | CARD ---
APPROVED REPORT Date of service: 04/02/2018 EKG Measurement Heart [id number] <Conclusion> Normal sinus rhythm Possible Left atrial enlargement Borderline ECG
== END 2018-04-02 23:05 | disposition home or self-care (01) ==
LOC: ED 21:27
DX: R07.9 Chest pain, unspecified (principal); I10 Essential (primary) hypertension; M32.9 Systemic lupus erythematosus, unspecified

== ENCOUNTER → 2018-05-24 | Emergency (ER) | payer MEDICARE, OTHER ==
[2018-05-24 01:45] VITALS: BMI 23.2
[2018-05-24 01:51] VITALS: TEMP 97.8
--- NOTE | 2018-05-24 02:12 | ED PDOC ---
Arrival/HPI - General Chief Complaint: Dizziness/Lightheaded Time Seen by Provider: 05/24/18 01:46 Historian: Patient - History of Present Illness Narrative History of Present Illness (Text): 05/24/18 02:10 A 57 year old female, whose past medical history includes fibromyalgia and anxiety, presents to the emergency department with a complaint of elevated blood pressure. The patient states that she got into an argument with her daughter this evening and noted that he blood pressure became elevated. The patient notes that at the time, she experienced a mild headache, but currently feels well. The patient denies fevers, chills, dizziness, sore throat, cough, chest pain, shortness of breath, dyspnea on exertion, abdominal pain, nausea, vomiting, diarrhea, neck/back pain, urinary/bowel changes or any other complaint. Time/Duration: Prior to Arrival Symptom Onset: Sudden Symptom Course: Unchanged Activities at Onset: Rest, Light Context: Home Past Medical History - Provider Review Nursing Documentation Reviewed: Yes - Past History Past History: No Previous - Infectious Disease Hx of Infectious Diseases: None - Tetanus Immunization Tetanus Immunization: Unknown - Cardiac Hx Hypertension: Yes - Pulmonary Hx Asthma: Yes - Neurological Hx Neurological Disorder: No - HEENT Hx HEENT Disorder: No - Renal Hx Renal Disorder: No - Endocrine/Metabolic Hx Systemic Lupus Erythematosus: Yes - Integumentary Hx Dermatological Disorder: No - Musculoskeletal/Rheumatological Hx Arthritis: Yes - Gastrointestinal Hx Gastrointestinal Disorders: Yes Other/Comment: H-pylori - Psychiatric Hx Anxiety: Yes Hx Substance Use: No - Surgical History Hx Appendectomy: Yes Hx Hysterectomy: Yes Other/Comment: uterine fibroids, ovarian cysts - Anesthesia Hx Anesthesia: Yes Hx Anesthesia Reactions: No Hx Malignant Hyperthermia: No - Suicidal Assessment Feels Threatened In Home Enviroment: No Family/Social History - Physician Review Nursing Documentation Reviewed: Yes Family/Social History: No Known Family HX Smoking Status: Never Smoked Hx Alcohol Use: Yes Hx Substance Use: No Hx Substance Use Treatment: No Allergies/Home Meds Allergies/Adverse Reactions: Allergies morphine Allergy (Verified 12/26/17 07:21) ANAPHYLAXIS Penicillins Allergy (Verified 12/26/17 07:21) ANAPHYLAXIS Home Medications: Home Meds Medication Instructions Recorded Confirmed Zolpidem Tartrate [Ambien] 10 mg PO HS 12/26/14 05/24/18 Metoprolol Succinate XL [Toprol XL] 50 mg PO BID 12/26/17 05/24/18 ALPRAZolam [Xanax] 1 mg PO DAILY 05/14/18 05/24/18 Albuterol Sulfate [Ventolin Hfa] 1 puff IH DAILY PRN 05/14/18 05/24/18 Review of Systems - Physician Review All systems were reviewed & negative as marked: Yes - Review of Systems Constitutional: absent: Fevers ENT: absent: Sore Throat Respiratory: absent: SOB, Cough Cardiovascular: absent: Chest Pain, [place] Gastrointestinal: absent: Abdominal Pain, Stool Changes, Diarrhea, Nausea, Vomiting Genitourinary Female: absent: Urine Output Changes Musculoskeletal: absent: Back Pain, Neck Pain Neurological: Headache. absent: Dizziness Physical Exam Vital Signs Reviewed: Yes Vital Signs Temp Pulse Resp BP Pulse Ox 05/24/18 02:18 70 118 H 147/86 100 05/24/18 01:30 97.8 F 74 16 149/89 99 Temperature: Afebrile Blood Pressure: Normal Pulse: Regular Respiratory Rate: Normal Appearance: Positive for: Well-Appearing, Non-Toxic, Comfortable Pain Distress: None Mental Status: Positive for: Alert and Oriented X 3 - Systems Exam Head: Present: Atraumatic, Normocephalic Pupils: Present: PERRL Extroacular Muscles: Present: EOMI Conjunctiva: Present: Normal Mouth: Present: Moist Mucous Membranes Neck: Present: Normal Range of Motion Respiratory/Chest: Present: Clear to Auscultation, Good Air Exchange. No: Respiratory Distress, Accessory Muscle Use Cardiovascular: Present: Regular Rate and Rhythm, Normal S1, S2. No: Murmurs Abdomen: No: Tenderness, Distention, Peritoneal Signs Back: Present: Normal Inspection Upper Extremity: Present: Normal Inspection. No: Cyanosis, Edema Lower Extremity: Present: Normal Inspection. No: Edema Neurological: Present: GCS=15, CN II-XII Intact, Speech Normal Skin: Present: Warm, Dry, Normal Color. No: Rashes Psychiatric: Present: Alert, Oriented x 3, Normal Insight, Normal Concentration Medical Decision Making ED Course and Treatment: 05/24/18 02:13 Impression: A 57 year old female presents to the emergency department for further evaluation of elevated blood pressure s/p an argument with her daughter this evening. Plan: -- EKG -- Reassess and disposition Prior Visits: Notes and results from previous visits were reviewed. Progress Notes: 05/24/18 02:14: In emergency department patient's blood pressure is normal. pt wants to go home will dc 05/24/18 02:17 EKG: Ordered, reviewed, and independently interpreted the EKG. Rate : 68 BPM Rhythm : NSR 05/24/18 23:16 - Scribe Statement The provider has reviewed the documentation as recorded by the Scribe Nicky Quiñones Provider Scribe Attestation: All medical record entries made by the Scribe were at my direction and personally dictated by me. I have reviewed the chart and agree that the record accurately reflects my personal performance of the history, physical exam, medical decision making, and the department course for this patient. I have also personally directed, reviewed, and agree with the discharge instructions and disposition. Disposition/Present on Arrival - Present on Arrival Any Indicators Present on Arrival: No History of DVT/PE: No History of Uncontrolled Diabetes: No Urinary Catheter: No History of Decub. Ulcer: No History Surgical Site Infection Following: None - Disposition Have Diagnosis and Disposition been Completed?: Yes Diagnosis: Hypertension Disposition: HOME/ ROUTINE Disposition Time: 02:15 Patient Problems: Current Active Problems Problem Status Onset Hypertension Acute Condition: GOOD Discharge Instructions (ExitCare): High Blood Pressure in Adults Forms: [employer] (Lao)
[2018-05-24 02:21] VITALS: BP 147/86; PULSE 70; RESP 118; O2SAT 100
--- NOTE | 2018-05-24 22:03 | CARD ---
APPROVED REPORT Date of service: 05/24/2018 EKG Measurement Heart [id number] <Conclusion> Normal sinus rhythm Normal ECG
== END | disposition home or self-care (01) ==
LOC: ED 01:09
DX: I10 Essential (primary) hypertension (principal); F41.9 Anxiety disorder, unspecified

== ENCOUNTER 2018-06-08 09:56 | Emergency (ER) | payer MEDICARE, OTHER ==
[2018-06-08 09:57] VITALS: BMI 23.2
--- NOTE | 2018-06-08 10:39 | ED PDOC ---
Arrival/HPI - General Chief Complaint: High Blood Pressure Time Seen by Provider: 06/08/18 10:17 Historian: Patient - History of Present Illness Narrative History of Present Illness (Text): 06/08/18 10:39 57 year old female, with past medical history of hypertension, fibromyalgia, lupus, and small bowel obstruction, presents to the Emergency department complaining of "high blood pressure", nausea and dizziness since yesterday. Patient states unchanged symptoms since onset prompting her to present to the Emergency department for medical evaluation. Patient denies any other somatic complaints. Patient denies any fever, chills, vomiting, diarrhea, abdominal pain, chest pain, shortness of breath, cough, neck pain, back pain, headache or any other complaints. Patient informs compliance with her medication. PMD: Dr. Koo GI: Dr. Nicole Time/Duration: 24 hours Symptom Onset: Gradual Symptom Course: Unchanged Activities at Onset: Light Context: Home Past Medical History - Provider Review Nursing Documentation Reviewed: Yes - Past History Past History: No Previous - Infectious Disease Hx of Infectious Diseases: None - Tetanus Immunization Tetanus Immunization: Unknown - Cardiac Hx Hypertension: Yes - Pulmonary Hx Asthma: Yes - Neurological Hx Neurological Disorder: Yes (fibromyalgia) - HEENT Hx HEENT Disorder: No - Renal Hx Renal Disorder: No - Endocrine/Metabolic Hx Systemic Lupus Erythematosus: Yes - Integumentary Hx Dermatological Disorder: No - Musculoskeletal/Rheumatological Hx Arthritis: Yes - Gastrointestinal Hx Gastrointestinal Disorders: Yes Other/Comment: H-pylori - Psychiatric Hx Anxiety: Yes Hx Substance Use: No - Surgical History Hx Appendectomy: Yes Hx Hysterectomy: Yes Other/Comment: uterine fibroids, ovarian cysts - Anesthesia Hx Anesthesia: Yes Hx Anesthesia Reactions: No Hx Malignant Hyperthermia: No - Suicidal Assessment Feels Threatened In Home Enviroment: No Family/Social History - Physician Review Nursing Documentation Reviewed: Yes Family/Social History: No Known Family HX Smoking Status: Never Smoked Hx Alcohol Use: Yes Hx Substance Use: No Hx Substance Use Treatment: No Allergies/Home Meds Allergies/Adverse Reactions: Allergies morphine Allergy (Verified 06/08/18 10:19) ANAPHYLAXIS Penicillins Allergy (Verified 06/08/18 10:19) ANAPHYLAXIS Home Medications: Home Meds Medication Instructions Recorded Confirmed RX: Zolpidem Tartrate [Ambien] 10 mg PO HS 12/26/14 05/24/18 RX: Metoprolol Succinate XL 50 mg PO BID 12/26/17 05/24/18 [Toprol XL] ALPRAZolam [Xanax] 1 mg PO DAILY 05/14/18 05/24/18 Albuterol Sulfate [Ventolin Hfa] 1 puff IH DAILY PRN 05/14/18 05/24/18 Review of Systems - Physician Review All systems were reviewed & negative as marked: Yes - Review of Systems Constitutional: absent: Fevers Respiratory: absent: SOB, Cough Cardiovascular: Other (high blood pressure). absent: Chest Pain Gastrointestinal: absent: Abdominal Pain, Diarrhea, Nausea, Vomiting Musculoskeletal: absent: Back Pain, Neck Pain Neurological: absent: Headache, Dizziness Physical Exam Vital Signs Reviewed: Yes Vital Signs Temp Pulse Resp BP Pulse Ox 06/08/18 10:19 98.3 F 71 18 161/94 H 100 Temperature: Afebrile Blood Pressure: Hypertensive Pulse: Regular Respiratory Rate: Normal Appearance: Positive for: Well-Appearing, Non-Toxic, Comfortable Pain Distress: None Mental Status: Positive for: Alert and Oriented X 3 - Systems Exam Head: Present: Atraumatic, Normocephalic Pupils: Present: PERRL Extroacular Muscles: Present: EOMI Conjunctiva: Present: Normal Mouth: Present: Moist Mucous Membranes Neck: Present: Normal Range of Motion Respiratory/Chest: Present: Clear to Auscultation, Good Air Exchange. No: Respiratory Distress, Accessory Muscle Use Cardiovascular: Present: Regular Rate and Rhythm, Normal S1, S2. No: Murmurs Abdomen: No: Tenderness, Distention, Peritoneal Signs Back: Present: Normal Inspection Upper Extremity: Present: Normal Inspection. No: Cyanosis, Edema Lower Extremity: Present: Normal Inspection. No: Edema Neurological: Present: GCS=15, CN II-XII Intact, Speech Normal Skin: Present: Warm, Dry, Normal Color. No: Rashes Psychiatric: Present: Alert, Oriented x 3, Normal Insight, Normal Concentration Medical Decision Making ED Course and Treatment: 06/08/18 10:35 Impression: 57 year old female presents to the Emergency department complaining of high blood pressure, nausea and dizziness. ro cardiac metabolci infectious etiology Plan: -- EKG -- Labs -- Zofran -- Urinalysis -- Reassess and disposition Prior Visits: Notes and results from previous visits were reviewed. Progress Notes: 06/08/18 10:30 EKG: Ordered, reviewed, and independently interpreted the EKG. Rate : 64 BPM Rhythm : NSR Interpretation : No ST-segment elevations or depressions, no T-wave inversions, normal intervals. 06/08/18 13:29 labs neg. ekg no changes.pt observed in nad. advise outpt fu and return precautions - Medication Orders Current Medication Orders: Discontinued Medications Ondansetron HCl (Zofran Inj) 4 mg IVP STAT STA Stop: 06/08/18 10:37 - Scribe Statement The provider has reviewed the documentation as recorded by the Scribe John Luna. All medical record entries made by the Scribe were at my direction and personally dictated by me. I have reviewed the chart and agree that the record accurately reflects my personal performance of the history, physical exam, medical decision making, and the department course for this patient. I have also personally directed, reviewed, and agree with the discharge instructions and disposition. Disposition/Present on Arrival - Present on Arrival Any Indicators Present on Arrival: No History of DVT/PE: No History of Uncontrolled Diabetes: No Urinary Catheter: No History of Decub. Ulcer: No History Surgical Site Infection Following: None - Disposition Have Diagnosis and Disposition been Completed?: Yes Diagnosis: Dizziness Disposition: HOME/ ROUTINE Disposition Time: 11:00 Patient Problems: Current Active Problems Problem Status Onset Dizziness Acute Condition: STABLE Discharge Instructions (ExitCare): High Blood Pressure in Adults, Dizziness, Nonvertigo, (DC) Additional Instructions: follow up with specialist. return to er with worsening symptoms or concerns . Referrals: Carl Koo DO [Primary Care Provider] - Follow up with primary Forms: [employer] (Irish)
[2018-06-08 11:15] LABS: BASO # 0.03 K/mm3 (0.0-2.0); BASO % 0.6 % (0.0-3.0); EOS # 0.1 (0.0-0.7); GRAN # 2.91 (1.4-6.5); GRAN % 60.2 % (50.0-68.0); HEMOGLOBIN 12.5 g/dL (12.0-16.0); LYMPH # 1.6 (1.2-3.4); MEAN CELL VOLUME 88.1 fl (80.0-105.0); MEAN CORPUSCULAR HEMOGLOBIN 29.8 pg (25.0-35.0); MEAN CORPUSCULAR HGB CONC 33.9 g/dl (31.0-37.0); MEAN PLATELET VOLUME 8.2 fl (7.0-11.0); MONO # 0.3 (0.1-0.6); MONO % 6.2 % (1.0-6.0); RBC 4.19 10^6/uL (3.5-6.1); RED CELL DISTRIBUTION WIDTH 12.5 % (11.5-14.5); WHITE BLOOD COUNT 4.8 10^3/ul (4.5-11.0)
[2018-06-08 11:16] LABS: URINE APPEARANCE CLEAR (CLEAR); URINE BILIRUBIN NEGATIVE (NEGATIVE); URINE BLOOD NEGATIVE (NEGATIVE); URINE COLOR YELLOW (YELLOW); URINE GLUCOSE (UA) NEGATIVE (NEGATIVE); URINE LEUKOCYTE ESTERASE TRACE Leu/uL (NEGATIVE); URINE PROTEIN NEGATIVE mg/dL (<30 mg/dL); URINE UROBILINOGEN 0.2 E.U./dL (<1 E.U./dL)
[2018-06-08 11:20] LABS: URINE BACTERIA FEW (NEG); URINE RBC 0 - 2 /hpf (0-2)
[2018-06-08 11:27] LABS: ALB/GLOB RATIO 1.4 (1.1-1.8); ALBUMIN 4.6 g/dL (3.0-4.8); ALT/SGPT 26 U/L (7-56); AST/SGOT 26 U/L (14-36); BLOOD UREA NITROGEN 12 mg/dL (7-21); CALCIUM 9.8 mg/dL (8.4-10.5); GFR NON-AFRICAN AMERICAN > 60; INR 0.93; PARTIAL THROMBOPLASTIN TIME 31.1 Seconds (25.1-36.5); PROTHROMBIN TIME 10.7 SECONDS (9.4-12.5)
[2018-06-08 11:37] LABS: TROPONIN I < 0.01 ng/mL
[2018-06-08 13:55] VITALS: BP 145/78; PULSE 72; RESP 15; TEMP 98; O2SAT 97
--- NOTE | 2018-06-08 14:03 | CARD ---
APPROVED REPORT Date of service: 06/08/2018 EKG Measurement Heart [id number] <Conclusion> Normal sinus rhythm Normal ECG
== END 2018-06-08 12:00 | disposition home or self-care (01) ==
LOC: ED 09:56
DX: R42 Dizziness and giddiness (principal); I10 Essential (primary) hypertension
CPT/HCPCS: 80053; 81001; 82550; 83615; 83735; 84484; 85025; 85610; 85730; 87086; 93005; 96374; 99284; J2405

== ENCOUNTER 2018-08-28 21:51 | Emergency (ER) | payer OTHER ==
[2018-08-28 22:14] VITALS: BMI 23.0
[2018-08-28 22:17] VITALS: TEMP 99.1; O2SAT 97
[2018-08-28 22:39] VITALS: PULSE 72; RESP 18
[2018-08-28 23:26] LABS: BASO # 0.02 K/mm3 (0.0-2.0); BASO % 0.4 % (0.0-3.0); EOS % 0.8 % (1.5-5.0); GRAN # 2.15 (1.4-6.5); GRAN % 42.2 % (50.0-68.0); HEMOGLOBIN 12.3 g/dL (12.0-16.0); LYMPH # 2.5 (1.2-3.4); LYMPH % 48.7 % (22.0-35.0); MEAN CELL VOLUME 89.6 fl (80.0-105.0); MEAN CORPUSCULAR HEMOGLOBIN 29.9 pg (25.0-35.0); MEAN CORPUSCULAR HGB CONC 33.3 g/dl (31.0-37.0); MEAN PLATELET VOLUME 8.1 fl (7.0-11.0); MONO # 0.4 (0.1-0.6); MONO % 7.9 % (1.0-6.0); RBC 4.12 10^6/uL (3.5-6.1); RED CELL DISTRIBUTION WIDTH 13.4 % (11.5-14.5); WHITE BLOOD COUNT 5.1 10^3/uL (4.5-11.0)
[2018-08-28 23:27] LABS: PH,URINE 6.5 (4.7-8.0); URINE BILIRUBIN NEGATIVE (NEGATIVE); URINE BLOOD NEGATIVE (NEGATIVE); URINE GLUCOSE (UA) NEGATIVE (NEGATIVE); URINE LEUKOCYTE ESTERASE NEGATIVE Leu/uL (NEGATIVE); URINE PROTEIN NEGATIVE mg/dL (<30 mg/dL); URINE UROBILINOGEN 0.2 E.U./dL (<1 E.U./dL)
[2018-08-28 23:37] LABS: URINE APPEARANCE CLEAR (CLEAR); URINE COLOR LIGHT YELLOW (YELLOW)
[2018-08-28 23:43] LABS: ALB/GLOB RATIO 1.4 (1.1-1.8); ALBUMIN 4.8 g/dL (3.0-4.8); ALT/SGPT 30 U/L (7-56); AST/SGOT 23 U/L (14-36); BLOOD UREA NITROGEN 13 mg/dL (7-21); CALCIUM 9.4 mg/dL (8.4-10.5); GFR NON-AFRICAN AMERICAN > 60
[2018-08-28 23:52] LABS: INR 0.93; PARTIAL THROMBOPLASTIN TIME 30.7 Seconds (25.1-36.5); PROTHROMBIN TIME 10.6 SECONDS (9.4-12.5)
[2018-08-28 23:55] LABS: TROPONIN I < 0.01 ng/mL
--- NOTE | 2018-08-29 00:22 | ED PDOC ---
Arrival/HPI - General Chief Complaint: GI Problem Time Seen by Provider: 08/28/18 21:57 Historian: Patient - History of Present Illness Narrative History of Present Illness (Text): 08/29/18 00:17 58 yo F with pmh of lupus, Hypertension, PUD, just completed full course of treatment for H. pylori, currently on nexium, complains of 1 week history of nausea and elevated bp. patient states that she recently saw her doctor regarding her elevated blood pressure and was placed on a new medication irbesartan/hydrochlorothiazide [id number] 0.5 mg. Otherwise: (-) diaphoresis, (-) dyspnea, (-) chest pain, (-) back pain, (-) dizziness, (-) syncope, (-) headache, (-) abdominal pain, (-) vomiting, (-) diarrhea, (-) fever, (-) melena, (-) hematochezia. Has history of prior abdominal surgery - hysterectomy and appendectomy. of note, patient has had a stress test this year which was normal, and last one she had a Holter monitor placed for 24 hours by her production consultant which was normal. PMD Michelle Uriarte Past Medical History - Past History Past History: No Previous - Infectious Disease Hx of Infectious Diseases: None - Tetanus Immunization Tetanus Immunization: Unknown - Reproductive Menopause: Yes - Cardiac Hx Hypertension: Yes - Pulmonary Hx Asthma: Yes - Neurological Hx Neurological Disorder: No - HEENT Hx HEENT Disorder: No - Renal Hx Renal Disorder: No - Endocrine/Metabolic Hx Systemic Lupus Erythematosus: Yes - Integumentary Hx Dermatological Disorder: No - Musculoskeletal/Rheumatological Hx Arthritis: Yes - Gastrointestinal Hx Gastrointestinal Disorders: Yes Other/Comment: H-pylori - Psychiatric Hx Anxiety: Yes Hx Substance Use: No - Surgical History Hx Appendectomy: Yes Hx Hysterectomy: Yes Other/Comment: uterine fibroids, ovarian cysts - Anesthesia Hx Anesthesia: Yes Hx Anesthesia Reactions: No Hx Malignant Hyperthermia: No - Suicidal Assessment Feels Threatened In Home Enviroment: No Family/Social History Family/Social History: No Known Family HX Smoking Status: Never Smoked Hx Alcohol Use: Yes Hx Substance Use: No Hx Substance Use Treatment: No Allergies/Home Meds Allergies/Adverse Reactions: Allergies morphine Allergy (Verified 08/28/18 22:17) ANAPHYLAXIS Penicillins Allergy (Verified 08/28/18 22:17) ANAPHYLAXIS Home Medications: Home Meds Medication Instructions Recorded Confirmed Zolpidem Tartrate [Ambien] 10 mg PO HS 12/26/14 08/28/18 Metoprolol Succinate XL [Toprol XL] 50 mg PO BID 12/26/17 08/28/18 ALPRAZolam [Xanax] 1 mg PO DAILY 05/14/18 08/28/18 Albuterol Sulfate [Ventolin Hfa] 1 puff IH DAILY PRN 05/14/18 08/28/18 Review of Systems - Review of Systems Constitutional: absent: Fatigue, Fevers Respiratory: absent: SOB, Cough, Sputum Cardiovascular: absent: Chest Pain, Palpitations Gastrointestinal: Nausea. absent: Abdominal Pain, Diarrhea, Vomiting Genitourinary Female: absent: Dysuria, Frequency, Hematuria Musculoskeletal: Arthralgias. absent: Back Pain, Neck Pain Skin: absent: Rash, Pruritis, Skin Lesions Neurological: absent: Headache, Dizziness, Focal Weakness Physical Exam Vital Signs Temp Pulse Resp BP Pulse Ox 08/28/18 22:38 72 18 149/76 97 08/28/18 22:14 99.1 F 83 20 169/92 H 97 Temperature: Afebrile Blood Pressure: Hypertensive Pulse: Regular Respiratory Rate: Normal Appearance: Positive for: Well-Appearing, Non-Toxic, Comfortable Pain Distress: None Mental Status: Positive for: Alert and Oriented X 3 - Systems Exam Head: Present: Atraumatic, Normocephalic Pupils: Present: PERRL Extroacular Muscles: Present: EOMI Conjunctiva: Present: Normal Mouth: Present: Moist Mucous Membranes Neck: Present: Normal Range of Motion Respiratory/Chest: Present: Clear to Auscultation, Good Air Exchange. No: R espiratory Distress, Accessory Muscle Use Cardiovascular: Present: Regular Rate and Rhythm, Normal S1, S2. No: Murmurs Abdomen: No: Tenderness, Distention, Peritoneal Signs Back: Present: Normal Inspection Upper Extremity: Present: Normal Inspection. No: Cyanosis, Edema Lower Extremity: Present: Normal Inspection. No: Edema Neurological: Present: GCS=15, CN II-XII Intact, Speech Normal, Motor Func Grossly Intact, Normal Sensory Function Skin: Present: Warm, Dry, Normal Color. No: Rashes Psychiatric: Present: Alert, Oriented x 3, Normal Insight, Normal Concentration Medical Decision Making ED Course and Treatment: 08/29/18 00:23 Previous medical records reviewed, patient had a stress and echo done this year : Stress 05/14/18: 1. Essentially normal SPECT myocardial perfusion study. 2. Fixed, anterior septal defect is most likely due to breast attenuation. 3. Normal gated wall motion of the left ventricle. 4. In comparison with the last study of 12/26/2014, there is no significant change. 4. Echocardiogram 05/28/2018: Mild LVH with good LV function. Mild AI. Mild TR. No pulmonary hypertension. Plan: -- Labs -- IV -- EKG -- CXR -- Zofran -- Reassess and disposition CXR : NAD, as read by MARGARETTE EKG: NSR at 69 bpm, (-) acute ST changes, as read by MARGARETTE. Labs reviewed and within normal limits including negative troponin. Repeat bp 149/76. On reevaluation, patient reports improvement of symptoms, denies any nausea, abdominal pain or chest pain. On exam, patient remains awake alert and oriented 3 in no acute distress. Diagnostic results discussed with the patient in great detail. Patient advised to continue taking Nexium and irbe sartan/hydrochlorothiazide as prescribed by her PMD. Advised to follow up with primary care physician in 1-2 days without fail. Advised to take medication as prescribed. Return to the emergency room at any time for any new or worsening symptoms. Patient states she fully agrees with and understands discharge instructions. States that she agrees with the plan and disposition. Verbalized and repeated discharge instructions and plan. I have given the patient opportunity to ask any additional questions. - Lab Interpretations Lab Results: 08/28/18 23:15 08/28/18 23:15 Lab Results 08/28/18 23:15: Sodium 140, Potassium 3.8, Chloride 104, Carbon Dioxide 27, Anion Gap 13, BUN 13, Creatinine 0.6 L, Est GFR ( Amer) > 60, Est GFR (Non-Af Amer) > 60, Random Glucose 108, Calcium 9.4, Magnesium 2.1, Total Bilirubin 0.5, AST 23, ALT 30, Alkaline Phosphatase 94, Lactate Dehydrogenase 417, Total Creatine Kinase 63, Troponin I < 0.01, Total Protein 8.3, Albumin 4.8, Globulin 3.5, Albumin/Globulin Ratio 1.4 08/28/18 23:15: Urine Color Light yellow, Urine Appearance Clear, Urine pH 6.5, Ur Specific Eldred 1.025, Urine Protein Negative, Urine Glucose (UA) Negative, Urine Ketones Negative, Urine Blood Negative, Urine Nitrate Negative, Urine Bilirubin Negative, Urine Urobilinogen 0.2, Ur Leukocyte Esterase Negative 08/28/18 23:15: PT 10.6, INR 0.93, APTT 30.7 08/28/18 23:15: WBC 5.1, RBC 4.12, Hgb 12.3, Hct 36.9, MCV 89.6, MCH 29.9, MCHC 33.3, RDW 13.4, Plt Count 378, MPV 8.1, Gran % 42.2 L, Lymph % (Auto) 48.7 H, Sharkey % (Auto) 7.9 H, Eos % (Auto) 0.8 L, Baso % (Auto) 0.4, Gran # 2.15, Lymph # (Auto) 2.5, Sharkey # (Auto) 0.4, Eos # (Auto) 0.0, Baso # (Auto) 0.02 - RAD Interpretation Radiology Orders: 08/28/18 22:57 CHEST PORTABLE [RAD] Stat - Medication Orders Current Medication Orders: Discontinued Medications Ondansetron HCl (Zofran Inj) 4 mg IVP STAT STA Stop: 08/28/18 22:59 Last Admin: 08/28/18 23:23 Dose: 4 mg IVP Administration Document 08/28/18 23:23 [facility] (Rec: 08/28/18 23:23 [facility] [id number]) Charges for Administration # of IVP Administrations 1 - PA / ELIGIBILITY CLERK / Resident Statement MD/DO has reviewed & agrees with the documentation as recorded. Disposition/Present on Arrival - Present on Arrival Any Indicators Present on Arrival: No History of DVT/PE: No History of Uncontrolled Diabetes: No Urinary Catheter: No History of Decub. Ulcer: No History Surgical Site Infection Following: None - Disposition Have Diagnosis and Disposition been Completed?: Yes Diagnosis: Nausea, Hypertension Disposition: HOME/ ROUTINE Disposition Time: 00:15 Patient Plan: Discharge Patient Problems: Current Active Problems Problem Status Onset Hypertension Acute Nausea Acute Condition: IMPROVED Discharge Instructions (ExitCare): High Blood Pressure in Adults, Dyspepsia, Nausea and Vomiting, Adult (DC), Low Salt Diet Additional Instructions: Thank you for letting us take care of you today. You were treated for nausea, hypertension. The emergency medical care you received today was directed at your acute symptoms. If you were prescribed any medication, please fill it and take as directed. It may take several days for your symptoms to resolve. Return to the Emergency Department if your symptoms worsen, do not improve, or if you have any other problems. Please contact your doctor in 2 days for re-evaluation and follow up. Bring any paperwork you were given at discharge with you along with any medications you are taking to your follow up visit. Our treatment cannot replace ongoing medical care by a primary care provider (PCP) outside of the emergency department. Thank you for allowing the [email or web address] team to be part of your care today. If you had an X-Ray : A Radiologist will review the ED reading if any change in treatment is needed we will contact you. Prescriptions: Ondansetron ODT [Zofran ODT] 4 mg PO DAILY PRN #20 odt PRN Reason: Nausea/Vomiting Forms: [employer] ([place]), WORK NOTE
[2018-08-29 00:48] VITALS: BP 122/76
--- NOTE | 2018-08-29 09:24 | CARD ---
APPROVED REPORT Date of service: 08/28/2018 EKG Measurement Heart [id number] GA [id number] [id number] <Conclusion> Normal sinus rhythm Normal ECG No change
--- NOTE | 2018-08-29 11:13 | RAD ---
Date of service: 08/28/2018 HISTORY: nausea COMPARISON: 04/02/2018 FINDINGS: LUNGS: No active pulmonary disease. PLEURA: No significant pleural effusion identified, no pneumothorax apparent. CARDIOVASCULAR: No atherosclerotic calcification present Normal. OSSEOUS STRUCTURES: No significant abnormalities. VISUALIZED UPPER ABDOMEN: Normal. OTHER FINDINGS: None. IMPRESSION: No active disease. No significant interval change compared to the prior examination(s).
== END 2018-08-29 00:50 | disposition home or self-care (01) ==
LOC: ED 21:51
DX: R11.0 Nausea (principal); I10 Essential (primary) hypertension; M32.9 Systemic lupus erythematosus, unspecified
CPT/HCPCS: 71045; 80053; 81003; 82550; 83615; 83735; 84484; 85025; 85610; 85730; 93005; 96374; 99284; J2405